=== PATIENT | male | born 1945 | race Caucasian/White ===

== ENCOUNTER 2020-01-10 07:59 | Day surgery (SDC) | payer MEDICARE, OTHER, SELFPAY ==
[2020-01-10 08:25] VITALS: BP 152/76; PULSE 58; RESP 16; TEMP 36.6; O2SAT 100
[2020-01-10] MEDS: Lactated Ringers 1,000 ML 80 ML IV (10:36)
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
[2020-01-10] MEDS: ceFAZolin 1 GM/50 ML BAG IVPB (11:14)
[2020-01-10] MEDS: Bupivacaine 0.5% Pres-Free 30 ML VIAL (11:21)
[2020-01-10] MEDS: Lidocaine 1% Multi-Dose 50 ML VIAL (11:21)
[2020-01-10] MEDS: Dexamethasone 4 MG/ML VIAL (11:43)
--- NOTE | 2020-01-10 11:56 | PDOC.DSDIS_ITS ---
Discharge Plan Disposition Patient Disposition: HOME Condition: Good Discharge Details Reason For Visit: correction of hammertoe Attending Provider: Woody Martin Primary Care Provider: Jesus Vail Home Meds and New Rx's Prescriptions: New ibuprofen 600 mg tablet 600 mg PO Q6H PRN (Reason: fever or pain) Qty: 30 RF: 0 Continued multivitamin Tablet 1 tab PO DAILY RF: 0 atorvastatin [Lipitor] 80 mg Tablet 80 mg PO QPM RF: 0 clopidogrel [Plavix] 75 mg Tablet 75 mg PO DAILY RF: 0 lisinopril 10 mg Tablet 10 mg PO DAILY RF: 0 allopurinol 300 mg Tablet 300 mg PO DAILY RF: 0 cholecalciferol (vitamin D3) [Vitamin D3] 25 mcg (1,000 unit) Tablet,Chewable 25 mcg PO DAILY RF: 0 Restasis 0.05 % Dropperette 1 drp OPHTHALMIC (EYE) Q12H RF: 0 aspirin [Aspirin Low Dose] 81 mg Tablet,Delayed Release (Dr/Ec) 81 mg PO DAILY RF: 0 nystatin 100,000 unit/mL Suspension 1 ml PO QID PRN PRNRF: 0 carvedilol 12.5 mg Tablet 12.5 mg PO BID RF: 0 polyethylene glycol 3350 [Miralax] 17 gram Powder In Packet 17 g PO DAILY PRNRF: 0 gabapentin 400 mg Capsule 400 mg PO TID RF: 0 allopurinol 100 mg Tablet 100 mg PO DAILY RF: 0 pantoprazole 40 mg Tablet,Delayed Release (Dr/Ec) 40 mg PO DAILY RF: 0 metronidazole 0.75 % Cream 1 applic TOPICAL BID PRNRF: 0 indomethacin 25 mg Capsule 25 mg PO BID PRNRF: 0 nitroglycerin [Nitrostat] 0.4 mg Tablet, Sublingual 0.4 mg SUBLINGUAL Q5-15M PRNRF: 0 colchicine 0.6 mg Tablet 0.6 mg PO DAILY PRNRF: 0 sodium chloride [Saline Nasal Mist] 0.65 % Aerosol,[place] 1 spray INTRANASAL ONCE RF: 0 Discharge Instructions Stand Alone Forms: Dutch Instructions-DSU, Ana Luisa James (DSU) Activity:: Activity as Tolerated Remove Dressings/Wound Care:: Do Not Remove Shower/Bathe:: Cover Diet:: Normal Diet Discharge Orders Discharge Orders: Discharge Order (Routine); Ordered 01/10/20 Ordered By: Woody Martin DS: Diagnosis Discharge Diagnosis (1) Hammertoe of left foot: Status: Acute
--- NOTE | 2020-01-10 12:02 | W.PM.OP ---
Date of service: 01/10/20 Time of Service: 12:02 Operative Note Operative Note DATE OF PROCEDURE: 01/10/20 PRE-OP DIAGNOSIS: Hammertoe deformity left fifth digit POST-OP DIAGNOSIS: same PROCEDURE: Arthroplasty left fifth digit SURGEON: Woody Martin ANESTHESIA: local ESTIMATED BLOOD LOSS: 2 PATHOLOGY: none sent COMPLICATIONS: None Patient was transported to: same day Patient's condition: stable Indications: 74-year-old white male with chronic and increasing pain associated left fifth hammertoe interfering with daily activities shoe gear and ambulation. Poorly responsive to nonoperative treatments. He understands risk and complications of surgery pertaining to pain scarring infection stiffness of the joint shortness of the toe swelling of the toe floating of the toe the potential for the corn to persist and revisional procedures be required. No promises were made final outcome of surgery informed consents been obtained Procedure Description: Castellano brought to the operative suite placed in supine position left foot is prepped and draped in the usual sterile podiatric fashion after the left fifth digit was anesthetized with 8 cc of a 50: 50 mixture 1% lidocaine plain, 0.5% Marcaine plain supplemented by 2 additional cc of 1% lidocaine with epinephrine. Timeout was performed. Attention was directed to the left fifth toe with 2 converging semi-elliptical incisions were placed over the PIPJ and heloma doram formation. Skin wedge was excised and soft tissue mobilization performed. A transverse tenotomy capsulotomy was performed at the PIPJ level with a 15 blade. Extensive arthritic degenerative change was appreciated at the joint line with a dorsal and lateral exostosis formations and severe degenerative change to the joint being observed. With double-action bone cutting forceps the head of the proximal phalanx was resected as were the dorsal and lateral exostosis formations from the middle phalanx. A hand rasp was then used and all rough and bony edges rasped smooth. Finger palpation revealed sufficient bony resection. Copious irrigation was performed. The extensor tendon was repaired with simple interrupted suture 3-0 Vicryl. Skin was then coapted with simple interrupted suture of 4-0 nylon. 4 mg dexamethasone phosphate was infused deeply into the digit proximally Xeroform gauze fluff compression dressings applied. Cosme left the OR vital signs stable vascular status intact sharp and sponge counts were correct he will be followed to by myself in the office next week thank you for this sales service assistant Luis terrazas D.P.M.
== END 2020-01-10 12:40 | disposition home or self-care (01) ==
PROVIDERS: PCP Family Medicine; Visit Provider Podiatrist
PROC: (CPT 28285; principal; 2020-01-10 11:00)
DX: M20.42 Other hammer toe(s) (acquired), left foot (principal)
CPT/HCPCS: 28285; NC; J0690; J1100; J2001

== ENCOUNTER 2020-11-27 07:54 | Day surgery (SDC) | payer MEDICARE, OTHER, SELFPAY ==
[2020-11-27 08:40] VITALS: BP 165/82; PULSE 59; RESP 16; TEMP 36.2; O2SAT 100
[2020-11-27] MEDS: Tetracaine 0.5% 4 ML BTL OS (09:45)
[2020-11-27] MEDS: Balanced Salt Soln.-PLUS 500 ML BAG (09:48)
[2020-11-27] MEDS: Duovisc Viscoelastic System EACH 1 EACH (09:48)
[2020-11-27] MEDS: Lidocaine 1% Pres-Free 5 ML VIAL (09:49)
[2020-11-27] MEDS: Povidone-Iodine Ophth 30 ML BTL (09:50)
[2020-11-27] MEDS: Lidocaine 2% Jelly 6 ML SYR (09:50)
--- NOTE | 2020-11-27 10:01 | PDOC.DSDIS_ITS ---
Discharge Plan Disposition Patient Disposition: HOME Condition: Good Discharge Details Attending Provider: Arnaud Stevenson Primary Care Provider: Jesus Vail Home Meds and New Rx's Prescriptions: No Action multivitamin Tablet 1 tab PO DAILY RF: 0 atorvastatin [Lipitor] 80 mg Tablet 80 mg PO QPM RF: 0 clopidogrel [Plavix] 75 mg Tablet 75 mg PO Q OTHER DAY RF: 0 lisinopril 10 mg Tablet 10 mg PO DAILY RF: 0 allopurinol 300 mg Tablet 300 mg PO DAILY RF: 0 cholecalciferol (vitamin D3) [Vitamin D3] 25 mcg (1,000 unit) Tablet,Chewable 25 mcg PO DAILY RF: 0 Restasis 0.05 % Dropperette 1 drp OPHTHALMIC (EYE) Q12H RF: 0 nystatin 100,000 unit/mL Suspension 1 ml PO QID PRN PRNRF: 0 carvedilol 12.5 mg Tablet 12.5 mg PO BID RF: 0 polyethylene glycol 3350 [Miralax] 17 gram Powder In Packet 17 g PO DAILY PRNRF: 0 gabapentin 400 mg Capsule 400 mg PO TID RF: 0 allopurinol 100 mg Tablet 100 mg PO DAILY RF: 0 pantoprazole 40 mg Tablet,Delayed Release (Dr/Ec) 40 mg PO DAILY RF: 0 metronidazole 0.75 % Cream 1 applic TOPICAL BID PRNRF: 0 nitroglycerin [Nitrostat] 0.4 mg Tablet, Sublingual 0.4 mg SUBLINGUAL Q5-15M PRNRF: 0 colchicine 0.6 mg Tablet 0.6 mg PO DAILY PRNRF: 0 sodium chloride [Saline Nasal Mist] 0.65 % Aerosol,[place] 1 spray INTRANASAL ONCE RF: 0 ibuprofen 600 mg tablet 600 mg PO Q6H PRN (Reason: fever or pain) Qty: 30 RF: 0 olopatadine 0.1 % drops 1 drp ophthalmic (eye) DAILY RF: 0 Discharge Instructions Stand Alone Forms: Post-op Block Cataract, Post-op Topical Cataract, Press Ganey (DSU) Discharge Orders Discharge Orders: Discharge Order (Routine); Ordered 11/27/20 Ordered By: Arnaud Stevenson DS: Diagnosis Discharge Diagnosis (1) Nuclear sclerotic cataract of left eye: Status: Resolved
--- NOTE | 2020-11-27 10:02 | ROE_ITS ---
Date of service: 11/27/20 Time of Service: 10:02 Operative Note Operative Note DATE OF PROCEDURE: 11/27/20 PRE-OP DIAGNOSIS: Nuclear cataract, left eye POST-OP DIAGNOSIS: same PROCEDURE: Cataract extraction using phacoemulsification with intraocular lens implant, left eye SURGEON: Arnaud Stevenson ANESTHESIA TYPE: Local By Surgeon and MAC Refer to Anesthesia Record PATHOLOGY: none sent COMPLICATIONS: None Patient was transported to: same day Patient's condition: stable Implants: [employer] / [employer] Tecnis [id number] Indications: Progressive decreased vision due to cataract, left eye Procedure Description: CATARACT SURGERY OPERATIVE REPORT PREOPERATIVE DIAGNOSIS: Nuclear cataract, left eye POSTOPERATIVE DIAGNOSIS: Same OPERATION: Cataract extraction using phacoemulsification with posterior chamber intraocular lens implant, left eye. IOL: IOL Furnace Utility Operator/Model: [employer] Vision / MARTA Tecnis ZCB00 IOL Power: + 21.0 diopters IOL Serial Number: [id number] Optic Diameter: 6.0mm Haptic/Overall Diameter: 13.0mm PHACO INFO: Morris NOWBOXon Vision System with OZil and Active Fluidics Cumulative Dispersed Energy (CDE): 12.83 seconds SURGEON: Arnaud Stevenson MD, CARROLL ANESTHESIA: Monitored Anesthesia Care (MAC), with local sub-tenon's anesthetic infiltration COMPLICATIONS: None SPECIMENS: None INDICATIONS FOR PROCEDURE: Patient is a 75-year-old gentleman with history of progressive decreased vision in his left eye. He is noted to have a significant nuclear cataract in the left eye. The option of cataract surgery was offered to the patient and he wished to proceed. PROCEDURE: The correct surgical eye was identified and marked as the left eye and the pupil was dilated in the preoperative area using mydriatics and cycloplegics. The dilated pupil size was 7.0 mm. He elected to proceed without oral sedation.. The patient was brought to the operating room where cardiopulmonary monitoring was instituted and surgical time-out was performed, confirming the correct operative eye and IOL power. Topical anesthesia was administered and ophthalmic povidone-iodine 5% was instilled into the conjunctival fornices. Lidocaine gel was applied to the cornea and the dwaine-ocular area was prepped with Betadine 10% solution and draped in the usual sterile fashion for intraocular surgery, including an aperture drape. A Tegaderm transparent film dressing was cut in half and used to cover the lashes and lid margins. Care was taken to sequester the lashes and lid margins under the Tegaderm dressing. A lid speculum was placed between the lids of the operative eye and the Shobha-Josue operating microscope was maneuvered into position. Estefany scissors were then used to make a conjunctival buttonhole approximately 6mm posterior to the limbus in the inferonasal quadrant. Blunt dissection was carried out to expose bare sclera, and a blunt-tipped sub-tenon?s anesthesia cannula was introduced and passed posteriorly along the globe where non- preserved plain lidocaine was injected into posterior sub-Tenon?s space. A sideport knife was used to make a paracentesis port superior/superiortemporally. Intraocular phenylephrine/lidocaine was injected into the anterior chamber. The anterior chamber was then filled with viscoelastic. A 2.4mm keratome knife was used to create a half-thickness groove at the limbus and then to construct a three-plane near-clear corneal tunnel extending 2.0mm into clear cornea in the temporal position. . A flap was raised on the anterior capsule and capsulorhexis forceps were used to complete a continuous curvilinear capsulorhexis of 5.0 mm. Balanced salt solution was then used to perform cortical cleaving hydrodissection and nuclear hydrodelineation until the lens could be freely rotated within the capsular bag. The lens nucleus was then disassembled and removed within the capsular bag and iris plane using phacoemulsification. Residual cortical material was removed using the 45-degree angled silicone I/A tip with 0.3mm port. The posterior capsule was carefully polished to remove as much residual lens epithelial cells as safely possible. The capsular bag was then inflated and the anterior chamber deepened with viscoelastic. The lens implant described above was inserted into the capsular bag using the MARTA Irene Injector. A Kuglen hook was used to dial the IOL into position. Residual viscoelastic was then removed first from posterior to the IOL, then from the anterior chamber using the I/A handpiece. The lens implant was noted to center nicely within the capsular bag. The incisions were stromally hydrated, and the anterior chamber was reformed using BSS. Then 0.5cc of moxifloxacin 1.0mg/ml were injected into the capsular bag and anterior chamber. The incisions were checked with a Weck spear and found to be secure. Several drops of ophthalmic povidone-iodine 5% were then applied to the eye followed by two drops of Imprimis combination prednisolone/moxifloxacin/nepafenac solution. The drapes were removed and a clear plastic protective eye shield was placed over the eye. The patient was then returned to [facility] Surgery in stable condition.
== END 2020-11-27 10:25 | disposition home or self-care (01) ==
PROVIDERS: PCP Family Medicine; Visit Provider Ophthalmology
PROC: (CPT 66984; principal; 2020-11-27 10:30)
DX: H25.12 Age-related nuclear cataract, left eye (principal)
CPT/HCPCS: 66984; V2632

== ENCOUNTER 2022-09-08 10:08 | Outpatient (CLI) | payer MEDICARE, SELFPAY ==
[2022-09-08 10:26] VITALS: BP 142/70; PULSE 60; RESP 20; TEMP 36.9; O2SAT 100
--- NOTE | 2022-09-08 11:23 | DI.RAD_ITS ---
Exam(s) XR PAIN CLINIC LUMBAR SP 2V EXAM: XR PAIN CLINIC LUMBAR SP 2V CLINICAL HISTORY: Dx: Lumbar Spondylosis. TECHNIQUE: Fluoroscopy was provided for the referring physician for guidance with performing pain cl inic injection procedure. COMPARISON: No exams were available for comparison FINDINGS: Please see procedure note for details. Fluoro time: 76.6 seconds RADIATION DOSE DELIVERED: deion Avery=17.01 mGy
[2022-09-08 11:24] VITALS: BP 139/57; PULSE 59; RESP 12; O2SAT 100
[2022-09-08] MEDS: Omnipaque 240 MG/ML 50 ML BTL IJ (11:33)
[2022-09-08] MEDS: Bupivacaine 0.5% Pres-Free 10 ML VIAL IJ (11:33)
--- NOTE | 2022-09-08 13:00 | PDOC.PAIN_ITS ---
Date of service: 09/08/22 Time of Service: 11:30 Pain Clinic Procedure Note Procedure Note Procedure Note: Lumbar/Sacral Medial Branch Blocks Cosme Meier has been referred to the [facility] for lumbar/sacral medial branch blocks. COMMENTS: I previously evaluated him in the clinic. He has a L2-L5 fusion. Pre-procedure pain VAS was 6/10. Dx: Lumbosacral spondylosis without myelopathy Patient was interviewed and the medical record reviewed. There were no medical, pharmacologic, radiographic or other structural contraindications to attempting fluoroscopically guided local anesthetic lumbar/sacral medial branch blocks. Risks and expected side effects as well as potential benefit of the procedure were reviewed and voiced concerns addressed. The printed consent form was signed and witnessed. Standard time-out procedure was performed. Patient was placed in the prone position on the fluoroscopy table and automated blood pressure cuff and pulse oximeter applied. The skin entry points for approaching the anatomic target points of the segmental medial branches of bilateral T12, L1, L4 and L5 were identified with anfluoroscopy and marked. Following thorough Chlorhexadine preparation of the skin and draping and 1% lidocaine infiltration of the skin entry points and subcutaneous tissues, a 22 gauge spinal needle was placed under fluoroscopic guidance down on to the target point for each respective segmental medial branch.Position was confirmed in A/P, oblique and lateral views with 0.25ml of omnipaque 240. Coult be this method .5ml 0.5% Bupivacaine was injected or 1% Lidocaine. Vital signs were stable throughout the procedure and were as recorded in the docflowsheet by the nursing staff. Follow up plans and appointments were discussed and was instructed to keep careful note of how the usual pain was modified by these injections. Specifically was asked to keep a pain diary for the next 24 hours using a numeric pain scale of 0-10 and report these results at the follow-up visit. Pos t procedure instruction was given as documented in the nursing documentation and having met discharge criteria. Patient was discharged from the [facility]. Based on the medial branches blocked today, if the patient has adequate relief and we are able to proceed to radiofrequency ablation, the treatment should result in the denervation of the bilateral L1-L2 and L5-S1 FACET JOINTS. We would expect to denervate a total of 4 facets during the radiofrequency ablation. COMMENTS: Post-procedure pain VAS was 1/10. Jesus Almeida DO, MPH [facility] CC: Jesus Vail
== END 2022-09-08 10:09 | disposition home or self-care (01) ==
LOC: PC 10:09
PROVIDERS: PCP Family Medicine; Visit Provider Preventive Medicine Occupational Medicine
DX: M47.817 Spondylosis without myelopathy or radiculopathy, lumbosacral region (principal); M54.50 Low back pain, unspecified
CPT/HCPCS: 64493; 64494; 72100; Q9967

== ENCOUNTER 2022-11-03 08:42 | Outpatient (CLI) | payer MEDICARE, SELFPAY ==
--- NOTE | 2022-11-03 06:00 | DI.RAD_ITS ---
Exam(s) XR PAIN CLINIC LUMBAR SP 2V EXAM: XR PAIN CLINIC LUMBAR SP 2V CLINICAL HISTORY: DX: Lumbar Spondylosis. TECHNIQUE: Fluoroscopy was provided for the referring physician for guidance with performing pain cl inic injection procedure. COMPARISON: No exams were available for comparison FINDINGS: Please see procedure note for details. Fluoro time: 78.1 seconds RADIATION DOSE DELIVERED: Bennier=20.23 mGy
[2022-11-03 08:56] VITALS: BP 141/67; PULSE 53; RESP 20; TEMP 36.4; O2SAT 100
[2022-11-03 09:42] VITALS: BP 141/67; PULSE 53; RESP 20; O2SAT 100
[2022-11-03] MEDS: Omnipaque 240 MG/ML 50 ML BTL IJ (09:44)
[2022-11-03] MEDS: Lidocaine 2% Pres-Free 5 ML VIAL IJ (09:44)
--- NOTE | 2022-11-03 12:15 | PDOC.PAIN_ITS ---
Date of service: 11/03/22 Time of Service: 10:00 Pain Clinic Procedure Note Procedure Note Procedure Note: Lumbar/Sacral Medial Branch Blocks Cosme Meier has been referred to the [facility] for lumbar/sacral medial branch blocks. COMMENTS: His initial LMBBs from 09/08/22 sucessfully gave him >80% pain relief. Pre-procedure pain VAS was 7/10. Dx: Lumbosacral spondylosis without myelopathy Patient was interviewed and the medical record reviewed. There were no medical, pharmacologic, radiographic or other structural contraindications to attempting fluoroscopically guided local anesthetic lumbar/sacral medial branch blocks. Risks and expected side effects as well as potential benefit of the procedure were reviewed and voiced concerns addressed. The printed consent form was signed and witnessed. Standard time-out procedure was performed. Patient was placed in the prone position on the fluoroscopy table and automated blood pressure cuff and pulse oximeter applied. The skin entry points for approaching the anatomic target points of the segmental medial branches of bilateral T12, L1, L4 and L5 were identified with fluoroscopy and marked. Following thorough Chlorhexadine preparation of the skin and draping and 1% lidocaine infiltration of the skin entry points and subcutaneous tissues, a 25 gauge 3.5 spinal needle was placed under fluoroscopic guidance down on to the target point for each respective segmental medial branch. Position was confirmed in A/P, oblique and lateral views with 0.25ml of omnipaque 240. At this point I injected 0.4 cc of 2% Lidocaine at each segmental sensory nerve. Vital signs were stable throughout the procedure and were as recorded in the docflowsheet by the nursing staff. Follow up plans and appointments were discussed and was instructed to keep careful note of how the usual pain was modified by these injections. Specifically was asked to keep a pain diary for the next 4 hours using a numeric pain scale of 0-10 and report these results at the follow-up visit. Post procedure instruction was given as documented in the nursing documentation and having met discharge criteria. Patient was discharged from the [facility]. Based on the medial branches blocked today, if the patient has adequate relief and we are able to proceed to radiofrequency ablation, the treatment should result in the denervation of the bilateral L1-L2 and L5-S1 FACET JOINTS. We would expect to denervate a total of 4 facets during the radiofrequency ablation. COMMENTS: Post-procedure pain VAS was 5/10. Jesus Almeida DO, MPH [facility] CC: Jesus Vail
== END 2022-11-03 08:43 | disposition home or self-care (01) ==
LOC: PC 08:42
PROVIDERS: PCP Family Medicine; Visit Provider Preventive Medicine Occupational Medicine
DX: M47.817 Spondylosis without myelopathy or radiculopathy, lumbosacral region (principal); M54.50 Low back pain, unspecified
CPT/HCPCS: 64493; 64494; 72100; Q9967

== ENCOUNTER 2022-12-14 12:39 | Outpatient (CLI) | payer MEDICARE, SELFPAY ==
[2022-12-14 13:08] VITALS: BP 153/74; PULSE 57; RESP 20; TEMP 37; O2SAT 99
[2022-12-14] MEDS: fentaNYL 100 MCG/2 ML VIAL IVP ×3 (13:47→14:07)
[2022-12-14] MEDS: Midazolam 2 MG/2 ML VIAL IVP (13:48)
[2022-12-14] MEDS: Lactated Ringers 500 ML 80 ML IV (13:48)
--- NOTE | 2022-12-14 14:28 | DI.RAD_ITS ---
Exam(s) XR PAIN CLINIC LUMBAR SP 2V EXAM: XR PAIN CLINIC LUMBAR SP 2V CLINICAL HISTORY: Dx: Lumbar Spondylosis. TECHNIQUE: Fluoroscopy was provided for the referring physician for guidance with performing pain cl inic injection procedure. COMPARISON: No exams were available for comparison FINDINGS: Please see procedure note for details. Fluoro time: 88.9 seconds RADIATION DOSE DELIVERED: Kar=23.35 mGy
[2022-12-14 14:37] VITALS: BP 171/76; PULSE 68; RESP 16; O2SAT 98
--- NOTE | 2022-12-14 14:37 | PDOC.PAIN_ITS ---
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 PROCEDURE: Radiofrequency Ablation of medial branches - Bilateral T12, L1, L4, and L5. Cosme Meier was brought into the fluoroscopy suite and positioned into the prone position on the fluoroscopy table and allowed to adjust to a position of comfort. A grounding pad was placed on the left abdomen. The lumbar region was widely prepped with a chloraprep solution, allowed to air dry and draped in standard sterile surgical fashion. Local anesthesia was provided by 4 mL of 2 % Lidocaine delivered with a 25g needle. A 17g 100 mm radiofrequency introducer needle was placed to the planned anatomic targets guided with intermittent fluoroscopy with a perpendicular approach to terminally place at the junction of the superior articular process and the transverse process of the bilateral L1, L2, L5 and the base of the sacral ala on the bilateral for the L5 medial branch nerve. The stylets were removed and radiofrequency probes with a 4mm active tip were then inserted. Needle tip position of the probes was verified in the AP, oblique, and lateral views. At each site, the medial branch nerve was stimulated at 2 Hz to a maximum 1-2 volts determined to finalize safe needle and electrode placement. The patient was awake and responsive during this portion of the procedure. Each target was anesthetized with 1-2 mL of 2 % Lidocaine for anesthesia for lesioning and then each target was lesioned at 80 degrees Celsius for 2 minutes and 30 seconds. Tissue impedences were noted to be between 250 and 500 Ohms. I then injected 1/4 cc of Depomedrol (40 mg/cc) at each segmental sensory nerve followed by 1 cc of 0.5% Bupivacaine. Electrodes and needles were then removed and bandages placed over the needle placement sites, the patient then returned to the supine position on a stretcher and transported to the recovery room without hemodynamic, neurologic, or allergic reactions. Fluoroscopic images were printed for hard copy recording and digitally archived. POST PROCEDURE EVALUATION: IMPRESSION: 1. Summary of procedure. Medication given is documented in the MAR. 2. The patient will be contacted in 1-3 weeks 3. Estimated Blood Loss: <5 mls 4. Fluoroscopy time: Documented in the EMR. Follow up plans and appointments were discussed with the Cosme . Post procedure instruction was given as documented in nursing documentation and having met discharge criteria, Cosme was discharged from the [facility]. COMMENTS: No apparent complications. Post-procedure pain: VAS= 4/10. If he achieves at least 50% pain improvement and/or functional improvement for at least 6 months, this procedure can be repeated. F/U with our office as needed. I personally performed this entire procedure. Jesus Almeida DO, MPH [facility]
[2022-12-14] MEDS: methylPREDNISolone ACETATE 40 MG/ML VIAL IJ (14:53)
[2022-12-14] MEDS: Lidocaine 2% Pres-Free 5 ML VIAL IJ (14:53)
[2022-12-14] MEDS: Bupivacaine 0.5% Pres-Free 10 ML VIAL IJ (14:54)
== END 2022-12-14 12:40 | disposition home or self-care (01) ==
LOC: PC 12:39
PROVIDERS: PCP Family Medicine; Visit Provider Preventive Medicine Occupational Medicine
DX: M47.817 Spondylosis without myelopathy or radiculopathy, lumbosacral region (principal); M54.50 Low back pain, unspecified
CPT/HCPCS: 64635; 64636; 72100; J1030; J2250; J3010

== ENCOUNTER 2022-12-28 12:50 | Outpatient (CLI) | payer MEDICARE, SELFPAY ==
[2022-12-28 13:02] VITALS: BP 132/66; PULSE 57; RESP 20; TEMP 36.3; O2SAT 100
--- NOTE | 2022-12-28 13:40 | DI.RAD_ITS ---
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 Radiologist not present. CONTRAST MATERIAL: None. COMPARISON: No exams were available for comparison FINDINGS: Fluoroscopy was provided for pain management therapy. Please refer to procedure report or details. Radiation Exposure Index: Ka,r=1.41 mGy IMPRESSION: As above. RADIATION DOSE DELIVERED:
[2022-12-28] MEDS: Omnipaque 240 MG/ML 50 ML BTL IJ (13:45)
[2022-12-28] MEDS: methylPREDNISolone ACETATE 80 MG/ML VIAL IJ (13:48)
[2022-12-28 13:54] VITALS: PULSE 86; O2SAT 100
--- NOTE | 2022-12-30 08:25 | PDOC.PAIN_ITS ---
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 Cosme was interviewed and the medical record reviewed. There were no medical, pharmacologic, radiographic or other structural contraindications to attempting fluoroscopically guided intra-articular LEFT AC joint injection. Risks and potential side effects as well as potential benefit of the procedure were reviewed with Mr. Meier, and HIS voiced concerns were addressed. After I believed that the patient was completely informed, the printed consent form was signed. Standard time-out procedure was performed. Cosme was placed in the supine position on the fluoroscopy table and automated blood pressure cuff and pulse oximeter applied. The skin entry point for approaching the left AC joint was identified under the most advantageous fluoroscopic view and marked. Following thorough Chlorhexadine preparation of the skin and draping, 1% lidocaine infiltration of the skin entry point and subcutaneous tissues was accomplished using a 1.5 25G needle. Next, the 1.5 25G needle was advanced to the center of the AC joint under fluoroscopic guidance into the left AC joint. Intra-articular placement was confirmed by a clear arthrogram resulting from the injection of 0.2 ml Omnipaque 240. Next, 1 mls of Depo medrol (40 mg/ml) followed by 1 mls of 1% Lidocaine was injected into the joint. (48 mls of Omnipaque was wasted) Cosme's vital signs were stable throughout the procedure and were as recorded in the docflowsheet by the nursing staff. If given, dosages of intravenous drugs for anxiolysis and analgesia were documented in MAR. Follow up plans and appointments were discussed with the Cosme. Post procedure instruction was given as documented in nursing documentation and having met discharge criteria, Cosme was discharged from the [facility] Center. COMMENTS: No apparent complications. Post-procedure pain: VAS= 3/10 F/U with our office by phone I personally performed this entire procedure. Jesus Almeida DO, MPH [facility]-Pain Management [facility]
== END 2022-12-28 12:51 | disposition home or self-care (01) ==
LOC: PC 12:50
PROVIDERS: PCP Family Medicine; Visit Provider Preventive Medicine Occupational Medicine
DX: M19.012 Primary osteoarthritis, left shoulder (principal); M25.512 Pain in left shoulder
CPT/HCPCS: 20610; 77002; J1040; Q9967

== ENCOUNTER 2024-09-30 20:43 | Outpatient (REF) | payer MEDICARE, SELFPAY ==
[2024-09-30 17:34] LABS: HCT 32.2 % (40.0-50.0); HGB 10.3 g/dL (13.5-17.5); MCV 94 fL (80-95); MPV 10.9 fL (8.0-11.0); Platelet Count 200 10^3/uL (130-400); RBC 3.43 10^6/uL (4.36-5.78); RDW 15.3 % (11.8-14.1); RDW-SD 52.9 fL; WBC 6.32 10^3/uL (4.4-10.8)
[2024-09-30 17:44] LABS: Anion Gap 6.8 mmol/L (3-11); BUN 42 mg/dL (7-18); CO2 27.2 mmol/L (21.0-32.0); CREATININE 1.4 mg/dL (0.70-1.30); Calcium 9.6 mg/dL (8.5-10.1); Chloride 109 mmol/L (98-107); Estimated GFR 51.45 (mL/min/1.73m2); Glucose 110 mg/dL (74-106); Potassium 4.6 mmol/L (3.5-5.1); Sodium 143 mmol/L (136-145)
== END 2024-09-30 20:44 | disposition home or self-care (01) ==
LOC: NCHCN 20:43
PROVIDERS: PCP Family Medicine; Visit Provider Family Medicine
DX: N18.31 Chronic kidney disease, stage 3a (principal); D64.9 Anemia, unspecified
CPT/HCPCS: 80048; 85027

== ENCOUNTER 2024-11-12 16:32 | Outpatient (REF) | payer MEDICARE, SELFPAY ==
[2024-11-12 15:02] LABS: Abs Immature Grans 0.01 10^3/uL (0.0-0.06); Absolute Basophil Count 0.06 10^3/uL (0.0-0.2); Absolute Eosinophil Count 0.23 10^3/uL (0.0-0.7); Absolute Lymphocyte Count 1.62 10^3/uL (1.2-3.4); Absolute Monocyte Count 0.45 10^3/uL (0.1-0.8); Absolute Neutrophil Count 3.54 10^3/uL (1.2-6.7); Eosinophils % 3.9 %; HCT 31.5 % (40.0-50.0); HGB 10.3 g/dL (13.5-17.5); Immature Grans % 0.2 %; Lymphocytes % 27.4 %; MCH 30.6 pg (27.0-33.0); MCHC 32.7 % (32.0-36.0); MCV 94 fL (80-95); Monocytes % 7.6 %; Neutrophils % 59.9 %; Platelet Count 189 10^3/uL (130-400); RBC 3.37 10^6/uL (4.36-5.78); RDW 14.9 % (11.8-14.1); RDW-SD 51.5 fL; WBC 5.91 10^3/uL (4.4-10.8)
[2024-11-12 15:46] LABS: Iron 64 ug/dL (65-175); Total Iron Binding Capacity 244 ug/dL (250-450); Transferrin Sat 26 % (20-55)
[2024-11-12 15:59] LABS: Ferritin 128 ng/mL (26-388); Folate 14.3 ng/mL (8.6-20.0)
[2024-11-15 10:19] LABS: Methylmalonic Acid 0.28 nmol/mL (<=0.40)
== END 2024-11-12 16:33 | disposition home or self-care (01) ==
LOC: NCHCN 16:32
PROVIDERS: Internal Medicine; PCP Family Medicine; Visit Provider Family Medicine
DX: D64.9 Anemia, unspecified (principal)
CPT/HCPCS: 80186; 82728; 82746; 83540; 83550; 85025

== ENCOUNTER 2024-11-18 11:50 | Outpatient (REF) | payer MEDICARE, SELFPAY ==
[2024-11-18 15:12] LABS: ALT 30 U/L (16-63); AST 27 U/L (15-37); Albumin 3.9 g/dL (3.4-5.0); Alkaline Phosphatase 90 U/L (46-116); Anion Gap 7.3 mmol/L (3-11); BUN 46 mg/dL (7-18); Bilirubin, Total 0.3 mg/dL (0.2-1.0); CO2 27.7 mmol/L (21.0-32.0); CREATININE 1.6 mg/dL (0.70-1.30); Calcium 9.8 mg/dL (8.5-10.1); Chloride 107 mmol/L (98-107); Estimated GFR 43.83 (mL/min/1.73m2); Glucose 106 mg/dL (74-106); Potassium 5.6 mmol/L (3.5-5.1); Sodium 142 mmol/L (136-145); Total Protein 7.2 g/dL (6.4-8.2)
== END 2024-11-18 11:51 | disposition home or self-care (01) ==
LOC: NCHCN 11:50
PROVIDERS: PCP Family Medicine; Visit Provider Family Medicine
DX: N18.31 Chronic kidney disease, stage 3a (principal)
CPT/HCPCS: 80053

== ENCOUNTER 2024-12-03 12:57 | Outpatient (REF) | payer MEDICARE, SELFPAY ==
[2024-12-03 14:32] LABS: Anion Gap 7.8 mmol/L (3-11); BUN 50 mg/dL (7-18); CO2 28.2 mmol/L (21.0-32.0); CREATININE 1.6 mg/dL (0.70-1.30); Calcium 9.7 mg/dL (8.5-10.1); Chloride 106 mmol/L (98-107); Estimated GFR 43.83 (mL/min/1.73m2); Glucose 112 mg/dL (74-106); Potassium 5.5 mmol/L (3.5-5.1); Sodium 142 mmol/L (136-145)
== END 2024-12-03 12:58 | disposition home or self-care (01) ==
LOC: NCHCN 12:57
PROVIDERS: PCP Family Medicine; Visit Provider Family Medicine
DX: N18.31 Chronic kidney disease, stage 3a (principal)
CPT/HCPCS: 80048

== ENCOUNTER 2025-01-06 16:41 | Outpatient (REF) | payer MEDICARE, SELFPAY ==
[2025-01-06 15:12] LABS: Anion Gap 8.1 mmol/L (3-11); BUN 45 mg/dL (7-18); CO2 27.9 mmol/L (21.0-32.0); CREATININE 1.4 mg/dL (0.70-1.30); Calcium 9.7 mg/dL (8.5-10.1); Chloride 104 mmol/L (98-107); Estimated GFR 51.45 (mL/min/1.73m2); Glucose 94 mg/dL (74-106); Potassium 4.5 mmol/L (3.5-5.1); Sodium 140 mmol/L (136-145)
== END 2025-01-06 16:42 | disposition home or self-care (01) ==
LOC: NCHCN 16:41
PROVIDERS: PCP Family Medicine; Visit Provider Family Medicine
DX: I10 Essential (primary) hypertension (principal)
CPT/HCPCS: 80048

== ENCOUNTER 2025-04-10 14:57 | Outpatient (REF) | payer MEDICARE, SELFPAY ==
[2025-04-10 15:00] LABS: Anion Gap 6.2 mmol/L (3-11); BUN 36 mg/dL (7-18); CO2 25.8 mmol/L (21.0-32.0); Calcium 9.9 mg/dL (8.5-10.1); Chloride 106 mmol/L (98-107); Estimated GFR 56.23 (mL/min/1.73m2); Glucose 97 mg/dL (74-106); Potassium 4.9 mmol/L (3.5-5.1); Sodium 138 mmol/L (136-145)
== END 2025-04-10 14:58 | disposition home or self-care (01) ==
LOC: NCHCL 14:57
PROVIDERS: PCP Family Medicine; Visit Provider Family Medicine
DX: I10 Essential (primary) hypertension (principal)
CPT/HCPCS: 80048

== ENCOUNTER 2025-04-14 12:09 | Outpatient (REF) | payer MEDICARE, SELFPAY ==
[2025-04-14 15:19] LABS: COMMENT (LAB VIEW ONLY) 18.28 mg/dL; Microalb ug/mg Crea 56.9 ug/mg Cr
== END 2025-04-14 12:10 | disposition home or self-care (01) ==
LOC: NCHCN 12:09
PROVIDERS: PCP Family Medicine; Visit Provider Family Medicine
DX: I10 Essential (primary) hypertension (principal)
CPT/HCPCS: 82043; 82570

== ENCOUNTER 2025-07-15 15:09 | Outpatient (REF) | payer MEDICARE, SELFPAY ==
[2025-07-15 14:59] LABS: Anion Gap 8.4 mmol/L (3-11); BUN 30 mg/dL (9-23); CO2 28.6 mmol/L (20.0-31.0); Calcium 9.8 mg/dL (8.3-10.6); Chloride 105 mmol/L (98-107); Glucose 93 mg/dL (74-106); Potassium 4.4 mmol/L (3.5-5.1); Sodium 142 mmol/L (136-145)
== END 2025-07-15 15:10 | disposition home or self-care (01) ==
LOC: NCHCN 15:09
PROVIDERS: PCP Family Medicine; Visit Provider Family Medicine
DX: I10 Essential (primary) hypertension (principal)
CPT/HCPCS: 80048